=== PATIENT | female | born 1980 | race Two or more races ===

== ENCOUNTER 2019-06-19 14:14 | Inpatient (IN) | payer OTHER ==
[~2019-06-19] VITALS: Ht 154.9 cm; Wt 75.7 kg
[2019-06-19] MEDS ORDERED: ASPIRIN 325MG EC TABLET PO ONE (16:00)
[2019-06-19] MEDS ORDERED: NITROGLYCERIN OINT 1GM/INCH UDPKT TD ONE (16:00)
[2019-06-19 16:15] LABS: BASOPHILS % 0.5 % (0.0-2.0); EOSINOPHILS % 0.4 % (0.0-5.0); HEMATOCRIT. 42.9 % (36.0-48.0); HEMOGLOBIN. 14.8 g/dL (12.0-16.0); LYMPHOCYTES % 25.7 % (20.0-50.0); MEAN CORPUSCULAR HEMOGLOBIN 31.9 pg (28.0-32.0); MEAN CORPUSCULAR VOLUME 92.3 fL (81.0-99.0); MEAN PLATELET VOLUME 7.4 fl (7.4-10.4); MONOCYTES % 5.4 % (2.0-8.0); PLATELET 324 x1000/uL (130-400); RED BLOOD CELL COUNT 4.64 mill/uL (4.2-5.4); RED CELL DISTRIBUTION WIDTH 13.5 % (11.6-14.6)
[2019-06-19 16:21] LABS: CHLORIDE 104 mEq/L (98-107)
[2019-06-19 16:25] LABS: HCG SCREEN NEGATIVE
[2019-06-19] MEDS ORDERED: SODIUM CHLORIDE 0.9% 500 ML IV ONE (18:09)
[2019-06-19] MEDS ORDERED: MORPHINE SULFATE 2 MG/ML CPJ (NOT FOR IM USE) IV PRN (22:00)
[2019-06-19] MEDS ORDERED: MAGNESIUM/ALUMINUM HYDROXIDE/SIMETHICONE 30ML UDC PO PRN (22:00)
[2019-06-19] MEDS ORDERED: DIPHENHYDRAMINE 50MG/ML VIAL IV PRN (22:00)
[2019-06-19] MEDS ORDERED: CLONIDINE 0.1MG TABLET PO PRN (22:00)
[2019-06-19] MEDS ORDERED: DOCUSATE SODIUM 100MG CAPSULE PO PRN (22:00)
[2019-06-19] MEDS ORDERED: HYDRALAZINE 20MG/ML VIAL IV PRN (22:00)
[2019-06-19] MEDS ORDERED: ONDANSETRON HCL 4MG/2ML INJ IV PRN (22:00)
[2019-06-19] MEDS ORDERED: ACETAMINOPHEN 325MG TABLET PO PRN (22:00)
[2019-06-19] MEDS ORDERED: GUAIFENESIN 200MG/10ML SUGAR FREE UDC PO PRN (22:00)
[2019-06-19] MEDS ORDERED: HYDROCODONE/ACETAMINOPHEN 10/325MG TABLET PO PRN (22:00)
[2019-06-19] MEDS ORDERED: IPRATROPIUM/ALBUTEROL 0.5-3(2.5)MG/3ML NEB HHN PRN (22:00)
[2019-06-19] MEDS ORDERED: LORAZEPAM 2MG/ML CPJ IV PRN (22:00)
[2019-06-20] VITALS (7 sets, daily range): BP systolic 92–123; BP diastolic 53–79
[2019-06-20] MEDS ORDERED: POTASSIUM CHLORIDE 20MEQ/PACKET PO ONE
[2019-06-20 06:59] LABS: CHLORIDE 112 mEq/L (98-107)
[2019-06-20 07:16] LABS: CREATINE KINASE 205 IU/L (26-192); CREATINE KINASE MB FRACTION < 1.0 ng/mL (0.5-3.6); LDL CHOLESTEROL 91 mg/dL (5-100); T4 FREE 1.23 ng/dL (0.76-1.46)
[2019-06-20 07:17] LABS: HDL CHOLESTEROL 48 mg/dL (40-59)
[2019-06-20 07:23] LABS: BASOPHILS % 0.6 % (0.0-2.0); EOSINOPHILS % 1.9 % (0.0-5.0); HEMATOCRIT. 40.7 % (36.0-48.0); HEMOGLOBIN. 13.8 g/dL (12.0-16.0); LYMPHOCYTES % 30.8 % (20.0-50.0); MEAN CORPUSCULAR HEMOGLOBIN 31.3 pg (28.0-32.0); MEAN CORPUSCULAR VOLUME 92.4 fL (81.0-99.0); MONOCYTES % 7.9 % (2.0-8.0); NEUTROPHILS % 58.8 % (40.0-76.0); PLATELET 297 x1000/uL (130-400); RED CELL DISTRIBUTION WIDTH 13.5 % (11.6-14.6)
[2019-06-20] MEDS ORDERED: REGADENOSON 0.4 MG/5 ML IV ONE ×2 (08:15→12:59)
[2019-06-20] MEDS: SODIUM CHLORIDE 0.9% INJ 3ML FLUSH IVF SCH ×3 (09:23→20:17)
[2019-06-20] MEDS: ASPIRIN 81MG EC TABLET PO SCH (11:11)
[2019-06-20] MEDS: ENOXAPARIN 40MG/0.4ML SYR SUBCUT SCH (11:11)
[2019-06-20 16:50] LABS: CREATINE KINASE 179 IU/L (26-192)
[2019-06-20 16:51] LABS: CREATINE KINASE MB FRACTION < 1.0 ng/mL (0.5-3.6)
[2019-06-21] VITALS: BP 91/57
[2019-06-21 00:09] LABS: CREATINE KINASE 125 IU/L (26-192)
[2019-06-21 00:10] LABS: CREATINE KINASE MB FRACTION < 1.0 ng/mL (0.5-3.6)
[2019-06-21 04:00] VITALS: BP 96/60
[2019-06-21] MEDS: SODIUM CHLORIDE 0.9% INJ 3ML FLUSH IVF SCH ×2 (05:30→14:06)
[2019-06-21 08:00] VITALS: BP 90/50
[2019-06-21] MEDS: ENOXAPARIN 40MG/0.4ML SYR SUBCUT SCH (08:14)
[2019-06-21] MEDS: ASPIRIN 81MG EC TABLET PO SCH (08:16)
[2019-06-21 08:39] LABS: CREATINE KINASE 101 IU/L (26-192)
[2019-06-21 08:40] LABS: CREATINE KINASE MB FRACTION < 1.0 ng/mL (0.5-3.6)
[2019-06-21 12:00] VITALS: BP 92/59
[2019-06-21 14:36] VITALS: BP 92/59
[2019-06-21] MEDS ORDERED: IOHEXOL-350 100 ML BOTTLE ONE (15:13)
== END 2019-06-21 15:19 | disposition home or self-care (01) | DRG 243 ==
LOC: ER 14:14 → 5WST 19:35 → EDBEDREQ 19:42 → ENRESERV 22:40
PROVIDERS: ADMIT Internal Medicine; ATTEND Internal Medicine
DX: K21.9 Gastro-esophageal reflux disease without esophagitis (principal); E83.52 Hypercalcemia; E87.6 Hypokalemia; Z79.899 Other long term (current) drug therapy
CPT/HCPCS: 36415; 71045; 71275; 78452; 80053; 80061; 82550; 82553; 83036; 83880; 84439; 84443; 84484; 84703; 85025; 85379; 93005; 93017; 93306; 93970; 99285; A9500; J1650; J2270; J2785; J7040; Q9967